=== PATIENT | female | born 1970 | race Caucasian/White ===

== ENCOUNTER 2019-11-28 06:13 | Inpatient (IN) | payer MEDICARE, MEDICAID ==
[~2019-11-28] VITALS: Ht 149.9 cm; Wt 67.6 kg
[2019-11-28] VITALS (10 sets, daily range): BP systolic 132–180; BP diastolic 72–108
[2019-11-28] MEDS ORDERED: ALBUTEROL (0.083%) 2.5MG/3ML NEB HHN STA (06:22)
[2019-11-28] MEDS ORDERED: IPRATROPIUM BROMIDE (0.02%) 0.5MG/2.5ML NEB HHN STA (06:22)
[2019-11-28] MEDS ORDERED: LABETALOL 5MG/ML SYR 20 MG/4 ML SYRINGE IV ONE (06:30)
[2019-11-28 06:49] LABS: BASOPHILS % 0.7 % (0.0-2.0); EOSINOPHILS % 1.3 % (0.0-5.0); HEMATOCRIT. 31.1 % (36.0-48.0); HEMOGLOBIN. 10.6 g/dL (12.0-16.0); LYMPHOCYTES % 17.4 % (20.0-50.0); MEAN PLATELET VOLUME 7.7 fl (7.4-10.4); MONOCYTES % 8.4 % (2.0-8.0); NEUTROPHILS % 72.2 % (40.0-76.0); PLATELET 372 x1000/uL (130-400); RED BLOOD CELL COUNT 3.02 mill/uL (4.2-5.4); RED CELL DISTRIBUTION WIDTH 13.1 % (11.6-14.6)
[2019-11-28] MEDS ORDERED: LEVOFLOXACIN 500MG PREMIX 100 ML IV ONE (07:00)
[2019-11-28 07:02] LABS: CHLORIDE 101 mEq/L (98-107)
[2019-11-28 07:09] LABS: PHOSPHORUS 3.4 mg/dL (2.5-4.9)
[2019-11-28 07:12] LABS: BG BASE EXCESS 1.6 mmol/L (-2.0-2.0); BG CARBOXYHEMOGLOBIN 0.3 % (0.5-1.5); BG DEOXYHEMOGLOBIN 0.6 % (0.0-5.0); BG FRACTION INSPIRED OXYGEN 80; BG HCO3 ACT 24.8 mmol/L (22.0-26.0); BG METHEMOGLOBIN 0.2 % (0.0-1.5); BG OXYGEN SATURATION 99.4 % (92.0-98.5); BG OXYHEMOGLOBIN 98.9 % (94.0-97.0); BG PCO2 33.9 mmHg (35.0-45.0); BG PH 7.482 (7.350-7.450); BG PO2 369.4 mmHg (75.0-100.0); BG SAMPLE SITE RIGHT RADIAL; BG TOTAL HEMOGLOBIN 10.4 g/dL (12.0-18.0); BG VENT MODE MASK - BIPAP
[2019-11-28 07:21] LABS: HCG SCREEN INDETERMINATE
[2019-11-28] MEDS ORDERED: ONDANSETRON HCL 4MG/2ML INJ IV PRN (09:30)
[2019-11-28] MEDS ORDERED: CLONIDINE 0.1MG TABLET PO PRN (09:30)
[2019-11-28] MEDS ORDERED: ACETAMINOPHEN 650MG/20.3ML UDC PO PRN (09:30)
[2019-11-28] MEDS: AMLODIPINE 10MG TABLET PO SCH (09:47)
[2019-11-28 12:03] LABS: BASOPHILS % 0.8 % (0.0-2.0); EOSINOPHILS % 0.2 % (0.0-5.0); HEMOGLOBIN. 9.3 g/dL (12.0-16.0); LYMPHOCYTES % 8.4 % (20.0-50.0); MEAN CORPUSCULAR HEMOGLOBIN 35.2 pg (28.0-32.0); MEAN CORPUSCULAR VOLUME 102.6 fL (81.0-99.0); MEAN PLATELET VOLUME 8.1 fl (7.4-10.4); MONOCYTES % 5.8 % (2.0-8.0); NEUTROPHILS % 84.8 % (40.0-76.0); PLATELET 304 x1000/uL (130-400); RED BLOOD CELL COUNT 2.63 mill/uL (4.2-5.4); RED CELL DISTRIBUTION WIDTH 13.2 % (11.6-14.6)
[2019-11-28 12:27] LABS: CHLORIDE 103 mEq/L (98-107)
[2019-11-28] MEDS: HYDRALAZINE HCL 50MG TABLET PO SCH ×2 (14:09→21:03)
[2019-11-28] MEDS ORDERED: IPRATROPIUM/ALBUTEROL 0.5-3(2.5)MG/3ML NEB HHN PRN (14:30)
[2019-11-28] MEDS: IPRATROPIUM/ALBUTEROL 0.5-3(2.5)MG/3ML NEB HHN SCH (20:21)
[2019-11-29] VITALS (13 sets, daily range): BP systolic 123–177; BP diastolic 73–99
[2019-11-29] MEDS: IPRATROPIUM/ALBUTEROL 0.5-3(2.5)MG/3ML NEB HHN SCH ×3 (01:58→21:13)
[2019-11-29] MEDS: HYDRALAZINE HCL 50MG TABLET PO SCH ×3 (05:22→21:30)
[2019-11-29] MEDS: AMLODIPINE 10MG TABLET PO SCH (09:03)
[2019-11-29] MEDS ORDERED: REGADENOSON 0.4 MG/5 ML IV NR (11:00)
[2019-11-29] MEDS: ENOXAPARIN 30MG/0.3ML SYR SUBCUT SCH (12:36)
[2019-11-29] MEDS: LOSARTAN POTASSIUM 25 MG TABLET PO SCH (12:36)
[2019-11-29] MEDS ORDERED: OMEP20CA14 PO (12:47)
[2019-11-29] MEDS ORDERED: HYDR200T80 PO (12:57)
[2019-11-29] MEDS ORDERED: AMLO10TA80 PO (12:57)
[2019-11-29] MEDS ORDERED: LABE300T3 PO (12:57)
[2019-11-29] MEDS ORDERED: VIT D2 (12:57)
[2019-11-29] MEDS ORDERED: SEVE800T8 MT (12:59)
[2019-11-29] MEDS: SEVELAMER CARBONATE 800 MG TABLET PO SCH ×2 (13:30→16:41)
[2019-11-29] MEDS: OMEPRAZOLE 20MG CAPSULE EXTENDED RELEASE PO SCH (13:30)
[2019-11-29] MEDS ORDERED: HYDROXYCHLOROQUINE SULFATE 200MG TABLET PO SCH (14:00)
[2019-11-29 15:39] LABS: CREATINE KINASE MB FRACTION 2.6 ng/mL (0.5-3.6)
[2019-11-29 15:48] LABS: T4 FREE 1.17 ng/dL (0.76-1.46)
[2019-11-29] MEDS: CARVEDILOL 3.125 MG TABLET PO SCH (21:30)
[2019-11-30] VITALS (11 sets, daily range): BP systolic 113–147; BP diastolic 64–93
[2019-11-30 00:38] LABS: CREATINE KINASE MB FRACTION 2.2 ng/mL (0.5-3.6)
[2019-11-30] MEDS: IPRATROPIUM/ALBUTEROL 0.5-3(2.5)MG/3ML NEB HHN SCH ×3 (02:44→14:12)
[2019-11-30] MEDS: HYDRALAZINE HCL 50MG TABLET PO SCH ×2 (05:32→14:55)
[2019-11-30 06:55] LABS: EOSINOPHILS % 4.6 % (0.0-5.0); HEMATOCRIT. 25.9 % (36.0-48.0); HEMOGLOBIN. 8.8 g/dL (12.0-16.0); LYMPHOCYTES % 19.9 % (20.0-50.0); MEAN CORPUSCULAR VOLUME 102.7 fL (81.0-99.0); MEAN PLATELET VOLUME 7.9 fl (7.4-10.4); NEUTROPHILS % 63.5 % (40.0-76.0); PLATELET 261 x1000/uL (130-400); RED BLOOD CELL COUNT 2.52 mill/uL (4.2-5.4); RED CELL DISTRIBUTION WIDTH 12.9 % (11.6-14.6)
[2019-11-30 06:56] LABS: CHLORIDE 100 mEq/L (98-107)
[2019-11-30 07:03] LABS: PHOSPHORUS 5.6 mg/dL (2.5-4.9)
[2019-11-30 07:05] LABS: CREATINE KINASE 188 IU/L (26-192)
[2019-11-30] MEDS: SEVELAMER CARBONATE 800 MG TABLET PO SCH ×2 (08:00→13:24)
[2019-11-30] MEDS: ENOXAPARIN 30MG/0.3ML SYR SUBCUT SCH (08:42)
[2019-11-30] MEDS: AMLODIPINE 10MG TABLET PO SCH (08:42)
[2019-11-30] MEDS: OMEPRAZOLE 20MG CAPSULE EXTENDED RELEASE PO SCH (08:43)
[2019-11-30] MEDS: LOSARTAN POTASSIUM 25 MG TABLET PO SCH (08:43)
[2019-11-30] MEDS: CARVEDILOL 3.125 MG TABLET PO SCH (08:43)
[2019-11-30] MEDS ORDERED: REGADENOSON 0.4 MG/5 ML IV ONE (09:01)
[2019-11-30] MEDS ORDERED: HYDR-4135 PO (15:57)
[2019-11-30] MEDS ORDERED: LOSA25TA3 PO (15:57)
[2019-11-30] MEDS ORDERED: COR3 PO (15:57)
== END 2019-11-30 18:22 | disposition home or self-care (01) | DRG 291 ==
LOC: ER 06:13 → 5EST 06:56 → EDBEDREQTM 07:10 → EDBEDREQ 07:10 → ENRESERV 07:51
PROVIDERS: ADMIT Family Medicine; ATTEND Family Medicine
PROC: 5A1D70Z Performance of Urinary Filtration, Intermittent, Less than 6 Hours Per Day (ICD-10-PCS; principal; 2019-11-28)
PROC: 5A09357 Assistance with Respiratory Ventilation, Less than 24 Consecutive Hours, Continuous Positive Airway Pressure (ICD-10-PCS; 2019-11-28)
PROC: 5A1D70Z Performance of Urinary Filtration, Intermittent, Less than 6 Hours Per Day (ICD-10-PCS; 2019-11-30)
DX: I13.2 Hypertensive heart and chronic kidney disease with heart failure and with stage 5 chronic kidney disease, or end stage renal disease (principal); J96.01 Acute respiratory failure with hypoxia; N18.6 End stage renal disease; I50.31 Acute diastolic (congestive) heart failure; J91.8 Pleural effusion in other conditions classified elsewhere; I42.9 Cardiomyopathy, unspecified; M32.9 Systemic lupus erythematosus, unspecified; K21.9 Gastro-esophageal reflux disease without esophagitis; E66.9 Obesity, unspecified; E78.5 Hyperlipidemia, unspecified; D63.1 Anemia in chronic kidney disease; Z83.3 Family history of diabetes mellitus; Z84.89 Family history of other specified conditions; Z68.30 Body mass index [BMI] 30.0-30.9, adult; Z82.49 Family history of ischemic heart disease and other diseases of the circulatory system; Z99.2 Dependence on renal dialysis; E83.39 Other disorders of phosphorus metabolism; R77.8 Other specified abnormalities of plasma proteins
CPT/HCPCS: 36415; 36600; 71045; 78452; 80048; 80053; 80061; 82375; 82550; 82553; 82805; 83036; 83605; 83735; 84100; 84145; 84439; 84443; 84484; 84702; 84703; 85025; 93005; 93017; 93306; 93970; 94640; 94644; 94660; 99291; A9500; J1650; J1956; J2785; J3490

== ENCOUNTER 2023-07-24 19:43 | Emergency (ER) | payer MEDICARE, MEDICAID ==
[~2023-07-24] VITALS: Ht 167.6 cm; Wt 80.0 kg
[~2023-07-24 19:43] MED LIST: AMLO10TA80 PO; COR3 PO; HYDR200T80 PO; HYDR50TA39 PO; LOSA-412 PO; OMEP20CA14 PO; SEVE800T8 MT; VIT D2
[2023-07-24 19:45] VITALS: TEMP 98.4; O2SAT 98
[2023-07-24 20:21] LABS: BASOPHILS % 0.5 % (0.0-2.0); EOSINOPHILS % 1.1 % (0.0-5.0); HEMATOCRIT. 26.2 % (36.0-48.0); HEMOGLOBIN. 8.9 g/dL (12.0-16.0); LYMPHOCYTES % 22.7 % (20.0-50.0); MEAN CORPUSCULAR HEMOGLOBIN 33.8 pg (28.0-32.0); MEAN CORPUSCULAR HGB CONC 34.2 g/dL (31.0-37.0); MEAN CORPUSCULAR VOLUME 98.9 fL (81.0-99.0); MEAN PLATELET VOLUME 6.7 fl (7.4-10.4); MONOCYTES % 7.7 % (2.0-8.0); PLATELET 312 x1000/uL (130-400); RED BLOOD CELL COUNT 2.64 mill/uL (4.2-5.4); RED CELL DISTRIBUTION WIDTH 17.2 % (11.6-14.6); WHITE BLOOD COUNT 7.8 x1000/uL (4.5-11.0)
[2023-07-24 20:25] LABS: POTASSIUM 4.5 mEq/L (3.5-5.1)
[2023-07-24 20:26] LABS: CALCIUM 9.3 mg/dL (8.7-10.4)
[2023-07-24 22:27] VITALS: BP 158/65; PULSE 79; RESP 15
== END 2023-07-24 22:35 | disposition home or self-care (01) ==
LOC: ER 19:43
DX: I12.0 Hypertensive chronic kidney disease with stage 5 chronic kidney disease or end stage renal disease (principal); N18.6 End stage renal disease; Z99.2 Dependence on renal dialysis; Z79.899 Other long term (current) drug therapy
CPT/HCPCS: 36415; 80048; 82962; 85025; 93005; 99284